=== PATIENT | female | born 1995 | race Caucasian/White ===

== ENCOUNTER 2021-07-02 10:31 | Outpatient (CLI) | payer BC ==
[2021-07-03 15:33] LABS: SARS-CoV-2 PCR by NAA Not Detected (NotDetected)
== END 2021-07-02 10:32 | disposition home or self-care (01) ==
LOC: CSHLAB 10:31
PROVIDERS: ATTEND Student in an Organized Health Care Education/Training Program
DX: Z20.822 Contact with and (suspected) exposure to COVID-19 (principal)
CPT/HCPCS: U0003; U0005